=== PATIENT | female | born 1950 | race Caucasian/White ===

== ENCOUNTER → 2016-08-16 | Outpatient (CLI) | payer BC ==
[~2016-08-16] MED LIST: ASPIRIN81 M2 PO; ATENOLOL25 MG PO; CELEBREX PO; FLAXSEED OIL1000 M1 PO; FLONASE ALLERG9.9 ML; FLONASE IH; IMITREX; KRILL OIL 3001 EACH PO; LIPITOR40 MG DOB; LIPITOR40 MG PO; LOPID600 MG PO; LUNESTA PO; MULTI-DAY1 TAB PO; NIASPAN1000 MG PO; NORCO 10/3251 TAB PO; PROAIR HFA8.5 GM; PROBIOTIC1 EAC5; SIMVASTATIN20 MG PO; VITAMIN C500 M5 PO; WELLBUTRIN SR150 MG PO; ZESTRIL5 MG PO; ZOCOR20 MG PO
--- NOTE | ~2016-08-16 | MY11 ---
[facility] A Service of [facility] RADIOLOGY TEXT RESULTS PATIENT: SIERRA LANDRY LOCATION: [facility] : 52 UNIT #: [id number] AGE: [address]: Clari Mendez MD SEX: F ORDER DR: [id number] [address] [address] [id number] O MR#: [id number] Acc #: [id number] NAME: SIERRA LANDRY : 1950 SEX: F STUDY DATE/TIME: 08/16/2016 9:36 UNIT: [facility] ROOM: STUDY DESCRIPTION: MY Mammogram Screening Dig Abhay Attending Physician: Clari Mendez M.D. Referring Physician: Clari Mendez M.D. Ordering Physician: Clari Mendez M.D. Primary Care Physician: Clari Mendez M.D. MEDICAL IMAGING REPORT This report is preliminary unless electronic signature is present. EXAM Digital screening mammogram 08/16/2016, [facility]. HISTORY 66-year-old woman. Family history of ovarian cancer in mother age 62. Annual screening. COMPARISON Comparison mammograms date to 09/04/2007, with most recent 03/21/2015. FINDINGS Digital imaging of each breast was completed utilizing screening protocol. Review includes FDA-approved CAD device. Breast parenchyma is partially fatty replaced. Parenchymal density bilateral subareolar locations reflects mild duct prominence in each breast. There is no interval occurring breast mass. I see no suspicious microcalcifications and no suspicious architectural deformity. IMPRESSION Negative mammogram. Annual screening recommended. Patients over the age of 40 are entered into a reminder system with target due date for the next mammogram. A result letter will be sent to the patient. BIRADS: 1 Negative. Dictated by... Javier Cruz M.D. THIS IS AN ELECTRONICALLY VERIFIED REPORT Javier Cruz M.D. at 08/16/2016 1:41 PM JBB/asmita [facility] A Service of [facility] & [facility] RADIOLOGY TEXT RESULTS PATIENT: SIERRA LANDRY LOCATION: [facility] #: [id number] : 52 UNIT #: [id number] AGE: [address]: Clari Mendez MD SEX: F ORDER DR: TD: 08/16/2016 12:27 JOB #: [id number] MEDICAL IMAGING REPORT Page 1 of 1
== END | disposition home or self-care (01) ==
LOC: SMAM 08:58
DX: Z12.31 Encounter for screening mammogram for malignant neoplasm of breast (principal)
CPT/HCPCS: G0202

== ENCOUNTER → 2016-10-20 | Outpatient (CLI) | payer BC ==
--- NOTE | ~2016-10-20 | CR63 ---
[facility] A Service of [facility] RADIOLOGY TEXT RESULTS PATIENT: SIERRA LANDRY LOCATION: [facility] : 51 UNIT #: [id number] AGE: [address]: Clari Mendez MD SEX: F ORDER DR: [id number] [facility] [address] [place], [place] [address] [id number] O MR#: [id number] Acc #: [id number] NAME: SIERRA LANDRY : 1950 SEX: F STUDY DATE/TIME: 10/20/2016 16:06 UNIT: [facility] ROOM: STUDY DESCRIPTION: CR Chest 2 View Attending Physician: Clari Mendez M.D. Referring Physician: Clari Mendez M.D. Ordering Physician: Clari Mendez M.D. Primary Care Physician: Clari Mendez M.D. MEDICAL IMAGING REPORT This report is preliminary unless electronic signature is present EXAM Chest x-ray, 10/20. INDICATIONS Acute bronchitis with bronchospasm. Cough for three weeks. Former smoker. FINDINGS Two views of the chest were compared with 01/12/2007. Lung volumes are low. Cardiac and mediastinal contours are normal. Granulomatous calcification again noted in left upper lobe. There is some interstitial scarring in the right upper lobe. The lungs otherwise are clear. No pneumothorax. IMPRESSION Low lung volumes with old granulomatous disease and chronic changes in the right upper lobe. No acute findings in the chest. Dictated by... Jaiden Mary Jr., M.D. THIS IS AN ELECTRONICALLY VERIFIED REPORT Jaiden Mary Jr., M.D. at 10/21/2016 5:04 PM MANN/valerie TD: 10/21/2016 13:00 JOB #: [id number] MEDICAL IMAGING REPORT Page 1 of 1 COPY
--- NOTE | ~2016-10-20 | CR184 ---
[facility] A Service of [facility] & [facility] RADIOLOGY TEXT RESULTS PATIENT: SIERRA LANDRY LOCATION: [facility] : 52 UNIT #: [id number] AGE: [address]: Clari Mendez MD SEX: F ORDER DR: [id number] [facility] [address] [place], [place] [address] [id number] O MR#: [id number] Acc #: [id number] NAME: SIERRA LANDRY : 1950 SEX: F STUDY DATE/TIME: 10/20/2016 16:16 UNIT: [facility] ROOM: STUDY DESCRIPTION: CR Lumbar Spine Min 4 Views Attending Physician: Clari Mendez M.D. Referring Physician: Clari Mendez M.D. Ordering Physician: Clari Mendez M.D. Primary Care Physician: Clari Mendez M.D. MEDICAL IMAGING REPORT This report is preliminary unless electronic signature is present EXAM Lumbar spine 10/20 INDICATIONS Chronic low back pain progressively worsening over time. Pain radiates to the left hip. TECHNIQUE/COMPARISON 5 views of the lumbar spine compared lumbar CT from 09/17/2009 FINDINGS There is dextroscoliosis of the thoracic lumbar junction. There is multilevel degenerative facet arthropathy, worse in the [id number] lumbar spine. There is degenerative disc disease, predominately at L3-4, L4-5, and L5-S1. There is loss of disc space height with degenerative endplate spurring. Findings have progressively worsened at L3-4 and are relatively stable at the remaining levels. There is also degenerative disease in the lower thoracic spine. Incidental note is made of atherosclerotic disease. IMPRESSION Multilevel degenerative disc disease and facet arthropathy as above, progressive from the prior study. No fracture or subluxation is seen. Dictated by... Jaiden Mary Jr., M.D. THIS IS AN ELECTRONICALLY VERIFIED REPORT Jaiden Mary Jr., M.D. at 10/21/2016 5:04 PM RLK/to TD: 10/21/2016 13:23 JOB #: [id number] [facility] A Service of [facility] & [facility] RADIOLOGY TEXT RESULTS PATIENT: SIERRA LANDRY LOCATION: [facility] : 52 UNIT #: [id number] AGE: [address]: Clari Mendez MD SEX: F ORDER DR: MEDICAL IMAGING REPORT Page 1 of 1 COPY
== END | disposition home or self-care (01) ==
LOC: CRAD 15:56
DX: J20.9 Acute bronchitis, unspecified (principal); M54.5 Low back pain; G89.29 Other chronic pain; M51.36 Other intervertebral disc degeneration, lumbar region; M46.86 Other specified inflammatory spondylopathies, lumbar region; Z87.09 Personal history of other diseases of the respiratory system
CPT/HCPCS: 71020; 72110

== ENCOUNTER 2016-11-15 21:07 | Emergency (ER) | payer BC ==
[~2016-11-15] VITALS: Ht 160 cm; Wt 81.6 kg
--- NOTE | ~2016-11-15 | CR72 ---
[facility] A Service of [facility] & [facility] RADIOLOGY TEXT RESULTS PATIENT: SIERRA LANDRY LOCATION: [facility] : 52 UNIT #: [id number] AGE: [address]: Jaiden Singh MD SEX: F ORDER DR: [id number] [facility] [address] [place], [place] [address] [id number] E MR#: [id number] Acc #: [id number] NAME: SIERRA LANDRY : 1950 SEX: F STUDY DATE/TIME: 11/16/2016 UNIT: [facility] ROOM: STUDY DESCRIPTION: CR Chest Single View Portable Attending Physician: Jaiden Singh M.D. Ordering Physician: Jaiden Singh M.D. Primary Care Physician: Clari Mendez M.D. MEDICAL IMAGING REPORT This report is preliminary unless electronic signature is present EXAM Portable chest 11/16 at 01:05 INDICATIONS Shortness of air, fever, cough, nausea, vomiting for 3 days. FINDINGS AP portable chest compared with 10/20/2016. Cardiac and mediastinal contours are normal. Scattered granulomatous calcifications are seen in the lungs. There is some stable right upper lobe scarring. Lungs otherwise clear. No pneumothorax. IMPRESSION No active disease. Granulomatous changes with stable mild right upper lobe scarring. Dictated by... Jaiden Mary Jr., M.D. THIS IS AN ELECTRONICALLY VERIFIED REPORT Jaiden Mary Jr., M.D. at 11/17/2016 6:02 AM MANN/stacie TD: 11/16/2016 09:44 JOB #: [id number] MEDICAL IMAGING REPORT Page 1 of 1 COPY
[2016-11-16 00:11] LABS: BASOPHIL# 0.1 X10e3 (0-0.3); BASOPHIL% 0.2 % (0-2.5); HEMATOCRIT 44.9 % (35.0-45.0); HEMOGLOBIN 15.2 gm/dL (12.0-16.0); LYMPHOCYTE# 1.3 X10e3 (1.0-3.5); LYMPHOCYTE% 6.4 % (17.0-45.0); MEAN CELL VOLUME 103.3 FL (83-96); MEAN CORPUSCULAR HEMOGLOBIN 34.8 PG (28-34); MEAN CORPUSCULAR HGB CONC 33.7 g/dL (30-36); MEAN PLATELET VOLUME 8.8 FL (6.5-11.5); MONOCYTE% 9.4 % (3.0-12.0); NEUTROPHIL# 17.8 X10e3 (1.5-7.1); PLATELET COUNT 155 X10e3 (140-420); RED BLOOD COUNT 4.35 X10e (3.90-5.30); RED CELL DISTRIBUTION WIDTH 13.3 % (11.0-15.5); WHITE BLOOD COUNT 21.2 X10e3 (4.0-10.5)
[2016-11-16 00:16] LABS: DIFF IND YES
[2016-11-16 00:25] LABS: PLATELET ESTIMATE NORMAL (NORMAL)
[2016-11-16 00:37] LABS: ALBUMIN SERUM 3.8 g/dL (3.5-5.0); BILIRUBIN, DIRECT 0.2 mg/dL (0.0-0.2); BILIRUBIN,INDIRECT 0.4 mg/dL (0.0-0.9); BILIRUBIN,TOTAL 0.6 mg/dL (0.2-2.0); BUN/CREATININE RATIO 13.33; CALCIUM SERUM 8.9 mg/dL (8.4-10.2); CREATININE SERUM 1.2 mg/dL (0.6-1.4); GLOM FILT RATE Estimated 47.4 mL/min (>60); POTASSIUM 3.3 mmol/L (3.5-5.1); PROTEIN TOTAL SERUM 7.6 g/dL (6.0-8.3)
== END 2016-11-16 02:42 | disposition home or self-care (01) ==
LOC: CED 21:07
PROVIDERS: Emergency Medicine
DX: J44.1 Chronic obstructive pulmonary disease with (acute) exacerbation (principal); B34.9 Viral infection, unspecified; F17.210 Nicotine dependence, cigarettes, uncomplicated; Z88.0 Allergy status to penicillin; Z88.2 Allergy status to sulfonamides; Z88.5 Allergy status to narcotic agent; Z88.1 Allergy status to other antibiotic agents; Z79.899 Other long term (current) drug therapy
CPT/HCPCS: 36415; 71010; 80048; 80076; 83690; 85025; 94640; 96360; 96361; 99284; J2405

== ENCOUNTER → 2016-11-18 | Outpatient (CLI) | payer BC ==
--- NOTE | ~2016-11-18 | MR17 ---
[facility] A Service of [facility] & [facility] RADIOLOGY TEXT RESULTS PATIENT: SIERRA LANDRY LOCATION: [facility] : 52 UNIT #: [id number] AGE: [address]: Clari Mendez MD SEX: F ORDER DR: [id number] [address] [address] [id number] O MR#: [id number] Acc #: [id number] NAME: SIERRA LANDRY : 1950 SEX: F STUDY DATE/TIME: 11/18/2016 16:30 UNIT: [facility] ROOM: STUDY DESCRIPTION: MR Brain WWo Contrast Attending Physician: Clari Mendez M.D. Referring Physician: Clari Mendez M.D. Ordering Physician: Clari Mendez M.D. Primary Care Physician: Clari Mendez M.D. MRI CENTER REPORT This report is preliminary unless electronic signature is present. EXAM MRI of the brain with and without contrast, 11/18/2016. COMPARISON MRI of the brain without contrast, 07/19/2014. HISTORY Migraine headaches . Atypical severe left-sided headache for the last 4-5 days. TECHNIQUE Multisequence, multiplanar imaging of the brain was obtained with and without contrast. GFR measured 47. 18 mL of MultiHance were administered intravenously. FINDINGS No acute stroke, space-occupying intracranial mass, mass effect, midline shift, or hydrocephalus is seen. 5-mm increased T2 signal focus is noted in the left frontal subcortical white matter with tiny punctate lesion in the right frontal centrum semiovale. No acute stroke, space-occupying intracranial mass, mass effect, midline shift, or hydrocephalus. There is mild prominence of CSF posterior to the cerebellar vermis, extending to the adjacent posteromedial aspect of the left cerebellar hemisphere. Stable. It could represent a bell cisterna magna or a small benign retrocerebellar arachnoid cyst. Postcontrast sequences do not demonstrate any enhancing lesions. Thick slices through the sella with the pituitary gland and pineal region are unremarkable. Mild degenerative changes of the cervical spine. Mild retrolisthesis of C4 is seen with respect to C3. Nasal septum is deviated to the left. Mild paranasal sinus mucosal thickening is noted. Imaged orbits with the ocular structures do not demonstrate any significant abnormality. [facility]. [facility] A Service of [facility] RADIOLOGY TEXT RESULTS PATIENT: SIERRA LANDRY LOCATION: [facility] : 52 UNIT #: [id number] AGE: [address]: Clari Mendez MD SEX: F ORDER DR: JEANMARIE 1. 5-mm increased T2 signal nonenhancing lesion is noted in the left cortical white matter, slightly increased in size from 3.5 mm in the last 3 years. Nonspecific. It could be related to focal area of gliosis from old insult. Patient has no known white matter demyelinating disease. 2. No acute intracranial abnormality, hydrocephalus, or midline shift is seen. 3. Mild prominence of CSF posterior to the cerebellar vermis and exiting towards to the posteromedial left cerebellar hemisphere is again seen. It could represent a bell cisterna magna or a small benign incidental retrocerebellar arachnoid cyst. Dictated by... Farheen Lyon M.D. THIS IS AN ELECTRONICALLY VERIFIED REPORT Farheen Lyon M.D. at 11/23/2016 11:49 AM CPR/yajaira TD: 11/19/2016 13:40 JOB #: [id number] MRI CENTER REPORT Page 1 of 1
[2016-11-18 16:58] LABS: BUN/CREATININE RATIO 13.84; CALCIUM SERUM 8.1 mg/dL (8.4-10.2); CREATININE SERUM 1.3 mg/dL (0.6-1.4); MAGNESIUM 1.9 mg/dL (1.6-3.0); POTASSIUM 3.5 mmol/L (3.5-5.1)
== END | disposition home or self-care (01) ==
LOC: SMRI 15:54
PROVIDERS: Internal Medicine
DX: R51 Headache (principal); G93.89 Other specified disorders of brain
CPT/HCPCS: 36415; 70553; 80048; 83735; A9581